=== PATIENT | male | born 1970 | race Caucasian/White ===

== ENCOUNTER 2017-07-23 09:55 | Emergency (ER) | payer BC ==
[2017-07-23 10:24] VITALS: BP 119/75; PULSE 68; RESP 16; TEMP 98; O2SAT 100
--- NOTE | 2017-07-23 10:35 | C.PDOC ---
History Of Present Illness 46 y/o male presents to ED with complaints of left lower dental pain for 3 days. Patient states he went to clinic today but was unable to obtain appointment, came to ED for evaluation. Patient reports history of multiple caries and denies fever, chills, active bleeding or any other complaints at this time. Time Seen by Provider: 07/23/17 10:29 Chief Complaint (Nursing): Dental Pain History Per: Patient History/Exam Limitations: no limitations Onset/Duration Of Symptoms: Days Current Symptoms Are (Timing): Still Present Past Medical History Reviewed: Historical Data, Nursing Documentation, Vital Signs Vital Signs: Last Vital Signs Temp 98.0 F 07/23/17 10:23 Pulse 68 07/23/17 10:23 Resp 16 07/23/17 10:23 BP 119/75 07/23/17 10:23 Pulse Ox 100 07/23/17 10:36 - Medical History PMH: No Chronic Diseases Surgical History: No Surg Hx Family History: States: No Known Family Hx - Social History Hx Alcohol Use: Yes Hx Substance Use: No - Immunization History Hx Tetanus Toxoid Vaccination: No Hx Influenza Vaccination: Yes Hx Pneumococcal Vaccination: No Review Of Systems Constitutional: Negative for: Fever, Chills ENT: Positive for: Mouth Pain (Tooth pain) Gastrointestinal: Negative for: Nausea, Vomiting Skin: Negative for: Rash Physical Exam - Physical Exam Appears: Non-toxic, No Acute Distress Skin: Warm, Dry, No Rash Head: Atraumatic, Normacephalic Eye(s): bilateral: Normal Inspection Oral Mucosa: Moist Tongue: Normal Appearing, No Swelling Lips: Normal Appearing, No Swelling Teeth: Caries, No Edentulous, Other (Poor dentition (+)left lower molar mild swelling) Gingiva: Normal Appearing, No Tender, No Bleeding Throat: Normal, No Erythema, No Exudate Neck: Supple Chest: Symmetrical Neurological/Psych: Oriented x3, Normal Speech ED Course And Treatment O2 Sat by Pulse Oximetry: 100 (RA) Pulse Ox Interpretation: Normal Medical Decision Making Medical Decision Making: poor dentition, prob L lower dental infection outpatient dental f/u Disposition Doctor Will See Patient In The: Office Counseled Patient/Family Regarding: Studies Performed, Diagnosis - Disposition Referrals: [facility] [Outside] [facility] [Outside] Disposition: HOME/ ROUTINE Disposition Time: 10:36 Condition: GOOD Additional Instructions: lance VK 250 mg 4 times per day for 1 week Motrin 400-600 mg every 6 hours as needed Pepcid 20 mg @ night to prevent stomach irritation from the Motrin Call to arrange local dentistry follow-up this week. Prescriptions: Penicillin VK [Penicillin VK Tab] 250 mg PO Q6H #27 tab Instructions: Dental Caries (ED) Forms: [employer] (Sami) - Clinical Impression Clinical Impression: Dental caries - Scribe Statement The provider has reviewed the documentation as recorded by the Dianeibgokul Devries All medical record entries made by the Dianeibgokul were at my direction and personally dictated by me. I have reviewed the chart and agree that the record accurately reflects my personal performance of the history, physical exam, medical decision making, and the department course for this patient. I have also personally directed, reviewed, and agree with the discharge instructions and disposition.
== END 2017-07-23 11:07 | disposition home or self-care (01) ==
LOC: C.ER 09:55
DX: K02.9 Dental caries, unspecified (principal)